=== PATIENT | female | born 1945 ===

== ENCOUNTER 2022-06-30 07:43 | Day surgery (SDC) | payer OTHER ==
[~2022-06-30] VITALS: Ht 154.9 cm; Wt 75.3 kg
[~2022-06-30 07:43] MED LIST: GABAPENTIN300 M2 PO; METFORMIN HCL500 M3 PO; NIFEDIPINE ER90 M1 PO; ZESTRIL20 MG PO
[2022-06-30] MEDS ORDERED: TRAM1TAB98 PO (11:22)
[2022-06-30] MEDS ORDERED: CEPHALEXIN250 MG PO (11:23)
== END 2022-06-30 13:00 | disposition home or self-care (01) ==
LOC: CIR.AMB 07:43
PROVIDERS: ATTEND Obstetrics & Gynecology Gynecology
DX: N32.81 Overactive bladder (principal); N39.41 Urge incontinence; R35.0 Frequency of micturition; Z20.822 Contact with and (suspected) exposure to COVID-19; I10 Essential (primary) hypertension
CPT/HCPCS: 64590; 64581; 95972; C1778; L8679